=== PATIENT | female | born 1970 | race American Indian/Alaskan Native ===

== ENCOUNTER 2020-09-28 11:05 | Outpatient (CLI) | payer MEDICARE ==
--- NOTE | 2020-09-28 13:00 | XRay Report ---
Right knee-3 views INDICATION: PAIN IN RIGHT KNEE. COMPARISON: None. IMPRESSION: No acute osseous or soft tissue abnormality. Mild tricompartmental degenerative arthr osis. Signer Name: Louis Barragan MD Signed: 09/28/2020 12:55 PM Workstation Name: [id number]
== END 2020-09-28 11:06 | disposition home or self-care (01) ==
LOC: XRAY 11:05
PROVIDERS: ATTEND Anesthesiology Pain Medicine
DX: M17.11 Unilateral primary osteoarthritis, right knee (principal)

== ENCOUNTER 2021-04-25 08:58 | Day surgery (SDC) | payer MEDICARE ==
--- NOTE | 2021-04-20 13:53 | Anesthesia Consultation ---
Anesthesia Consult and Med Hx Date of service: 04/25/21 - Airway Anesthetic Teeth Evaluation: Chipped ROM Head & Neck: Adequate Mental/Hyoid Distance: Adequate Mallampati Class: Class III Intubation Access Assessment: Probably Good - Pre-Operative Health Status ASA Pre-Surgery Classification: ASA3 Proposed Anesthetic Plan: General Nerve Block: TAP - Pulmonary Hx Respiratory Symptoms: No (+2FS) Hx Sleep Apnea: Yes (Does not use CPAP) - Cardiovascular System Hx Hypertension: Yes - Central Nervous System Hx Back Pain: Yes (Lower back) Hx Psychiatric Problems: No - Gastrointestinal Hx Gastroesophageal Reflux Disease: No - Endocrine Hx Non-Insulin Dependent Diabetes: Yes - Hematic Hx Sickle Cell Disease: No - Other Systems Hx Alcohol Use: Yes (Occas) Hx Cancer: No Hx Obesity: Yes
[2021-04-20 13:55] LABS: Basophils % (Auto) 0.6 % (0.0-1.8); Eosinophils # (Auto) 0.1 K/mm3 (0.0-0.4); Eosinophils % (Auto) 1.5 % (0.0-4.3); Hematocrit 42.1 % (30.3-42.9); Hemoglobin 14.3 gm/dl (10.1-14.3); Lymphocytes # (Auto) 2.5 K/mm3 (1.2-5.4); Lymphocytes % (Auto) 37.2 % (13.4-35.0); Mean Corpuscular HGB Conc 34 % (30-34); Mean Corpuscular Volume 90 fl (79-97); Monocytes # (Auto) 0.4 K/mm3 (0.0-0.8); Monocytes % (Auto) 5.5 % (0.0-7.3); Platelet Count 305 K/mm3 (140-440); Red Blood Count 4.68 M/mm3 (3.65-5.03); Red Cell Distribution Width 13.6 % (13.2-15.2)
[2021-04-20 14:07] LABS: BUN/Creatinine Ratio 9; Blood Urea Nitrogen 7 mg/dL (7-17); Calcium 9.3 mg/dL (8.4-10.2); Hemolysis Index 9
--- NOTE | 2021-04-25 08:24 | Short Stay Summary ---
Short Stay Documentation Date of service: 04/25/21 Narrative H&P: 51y/o with symptomatic uterine fibroids. The patient reports having pain and heavy menses. Ultrasound demonstrated findings of an enlarged fibroid uterus of 10cm with a dominate leiomyoma measuring 6cm. She has elected for definitive surgical management - History Principal diagnosis: symptomatic uterine fibroids Past Medical History: hypertension, hyperlipidemia Past Surgical History: Other (elbow and knee surgery) Social history: single - Allergies and Medications Current Medications: Allergies latex Allergy (Verified 04/18/21 14:46) [place]red[place] and peels skin pineapple Allergy (Verified 04/18/21 14:46) Anaphylaxis Home Medications Medication Instructions Recorded Confirmed Last Taken Type Aspirin 325 mg PO QDAY 04/18/21 04/18/21 Unknown History Cyclobenzaprine [Flexeril] 10 mg PO BID 04/18/21 04/18/21 Unknown History HYDROcodone/APAP 7.5-325 [[place] 1 each PO Q6HR PRN 04/18/21 04/18/21 Unknown History 7.5/325] Meclizine [Antivert] 25 mg PO BID 04/18/21 04/18/21 Unknown History Metoprolol [Lopressor] 25 mg PO BID 04/18/21 04/18/21 Unknown History lisinopriL [Lisinopril] 20 mg PO DAILY 04/18/21 04/18/21 Unknown History metFORMIN [Glucophage] 500 mg PO BID 04/18/21 04/18/21 Unknown History Active Medications Acetaminophen (Acetaminophen 500 Mg Tab) 1,000 mg PO ONCE LYNN Stop: 04/25/21 23:00 Celecoxib (Celecoxib 200 Mg Cap) 400 mg PO PREOP NR Stop: 04/25/21 23:00 Fentanyl (Fentanyl 100 Mcg/2 Ml Inj) 100 mcg IV ONCE LYNN Stop: 04/25/21 23:00 Lactated Ringer's (Lactated Ringers) 1,000 mls @ 125 mls/hr IV DIRECT LYNN Magnesium Oxide (Magnesium Oxide 400 Mg Tab) 400 mg PO ONCE LYNN Stop: 04/25/21 23:01 Midazolam HCl (Midazolam 2 Mg/2 Ml Inj) 2 mg IV PREOP NR Stop: 04/25/21 23:59 - Physical exam General appearance: no acute distress Integumentary: no rash HEENT: Atraumatic Lungs: Clear to auscultation Breasts: deferred Heart: Regular rate Gastrointestinal: normal Female Genitourinary: deferred Rectal Exam: deferred - Brief post op/procedure progress note Date of procedure: 04/25/21 Pre-op diagnosis: Symptomatic uterine fibroids Post-op diagnosis: same Procedure: Robotic hysterectomy and bilateral salpingo-oophorectomy Anesthesia: MONI Surgeon: ANA MAYO Estimated blood loss: other (200 mL) Pathology: list (Uterus, cervix, bilateral tubes and ovaries) Specimen disposition: to lab Condition: stable - Hospital course Hospital course: The patient was admitted the day of surgery underwent a robotic hysterectomy b ilateral salpingo-oophorectomy. Please see operative note for details of surgery. Her postoperative course was uneventful. - Disposition Condition at discharge: Good Disposition: DC-01 TO HOME OR SELFCARE Short Stay Discharge Plan Activity: other (Pelvic rest for 6 weeks) Diet: regular Additional Instructions: Schedule follow-up with Dr. Mayo in 4 weeks No tub baths for 4 weeks Patient may shower Follow up with: EMILY OLIVA DO [Primary Care Provider] - 7 Days
[~2021-04-25 08:58] MED LIST: ACETAMINOPHEN 500 MG TAB PO SCH; CELECOXIB 200 MG CAP PO NR; LACTATED RINGERS 1,000 ML IV SCH; MAGNESIUM OXIDE 400 MG TAB PO SCH; MIDAZOLAM 2 MG/2 ML INJ IV NR; fentaNYL 100 MCG/2 ML INJ IV SCH
[2021-04-25] MEDS ORDERED: ceFAZolin/Water 2 GM/20 ML 2 GM/20 ML SYRINGE IV NR (09:00)
[2021-04-25] MEDS ORDERED: METOPROLOL TARTRATE 50 MG TAB PO SCH (10:12)
--- NOTE | 2021-04-25 10:12 | Anesthesia Day of Surgery ---
Anesthesia Day of Surgery - Day of Surgery Patient Examined: Yes Patient H&P Reviewed: Yes Patient is NPO: Yes Beta Blockers: Yes (home dose metoprolol given in preop)
[2021-04-25] MEDS ORDERED: dexAMETHasone 4 MG/ML VIAL ONE (10:15)
[2021-04-25] MEDS ORDERED: BUPIVACAINE-EPINEPHRINE/PF 0.25%-1:200,000 (30 ML) VIAL INFILTRATI ONE (10:15)
[2021-04-25] MEDS ORDERED: ONDANSETRON 4 MG/2 ML INJ IV PRN (10:30)
[2021-04-25] MEDS ORDERED: METOPROLOL TARTRATE 25 MG TAB PO SCH (10:30)
[2021-04-25] MEDS ORDERED: fentaNYL 100 MCG/2 ML INJ ONE ×2 (14:08→15:40)
[2021-04-25] MEDS ORDERED: propofoL 200 MG/20 ML VIAL IV ONE (14:08)
[2021-04-25] MEDS ORDERED: NEOMY 40 MG/POLYMYXIN B 200,000 UNITS/ML (GU) AMPULE IR ONE ×2 (15:07→15:47)
[2021-04-25] MEDS ORDERED: SODIUM CHLORIDE 0.9% IRR 1,500 ML BOTTLE IR ONE (15:48)
[2021-04-25] MEDS ORDERED: SODIUM CHLORIDE 0.9% IRRIG SOLN 2000 ML IR ONE (15:48)
[2021-04-25] MEDS ORDERED: SUGAMMADEX SODIUM 200 MG/2 ML VIAL IV ONE ×2 (16:27→16:34)
--- NOTE | 2021-04-25 16:27 | Operative Report ---
Operative Report Operative Report: Date of surgery: April 25, 2021 Preoperative diagnoses: Symptomatic uterine fibroids Postoperative diagnoses: Same as above Procedure: Robotic hysterectomy and bilateral salpingo-oophorectomy Surgeon: Shasha Pak M.D. Infusion Pharmacist: Roger Funk Anesthesia: Gen. endotracheal anesthesia Estimated blood loss: 200 mL Pathology: Uterus, cervix, bilateral tubes and ovaries Indication: 51-year-old with symptomatic uterine fibroids. The patient elected undergo definitive surgical management. Procedure: The patient was taken to the operating room and given general endotracheal anesthesia without complication. She is prepped and draped in a normal sterile fashion. A bivalve speculum was placed in the patient's vagina and a single- tooth tenaculum placed on the anterior lip of the cervix. The uterus was sounded with the uterine sound. A stay suture was placed at 12 o'clock on the ectocervix. A [employer] uterine manipulator was placed in the bivalve speculum was then removed. Attention was then turned to the patient's abdomen where a 12 millimeter supra umbilical skin incision was then made. A Veress needle was placed and peritoneal entry was verified water-filled syringe. Insufflation of the peritoneal cavity was performed with CO2 gas. The 12 mm trocar was then placed under direct visualization. An additional 8 mm trocar was placed on the patient's left and right lateral side just opposite of the supraumbilical trocar. An additional 5 mm right lateral trocar was then placed as the accessory port. The Michael Castorena device was used to close the fascia of the 12 mm incision. The patient was then placed in steep Trendelenburg. The da Darleen robot was then engaged. General survey of the abdomen and pelvis revealed enlarged fibroid uterus with bilateral tubes and ovaries that were normal in appearance. A fenestrated forcep was placed in arm 2 and a vessel sealer was placed in arm 1. The surgeon then transferred to the surgical console. The infundibulopelvic ligament was then isolated on the right. The vessel sealer was used to coagulate the ligament which was then transected. The tube and ovary were transected from the supply. The round ligament was then coagulated and transected also. The vesicouterine peritoneum was then entered from the patient's right side. The uterine vessels were then coagulated with the vessel sealer. The vessels were then transected . Attention was then turned to the patient's left side where the infundibulopelvic ligament and mesosalpinx were again isolated coagulated and transected. The vesical peritoneum was then entered from the left and joined in the midline. Peritoneum was reflected off of the lower uterine segment. Uterine vessels were then coagulated and then transected. The blood supply to the uterus was adequately contained, a posterior colpotomy was made. The V care ring was visualized. Posterior colpotomy was created with the monopolar scissors. The incision was continued circumferentially until anterior colpotomy was made. The cervix and uterus were amputated from the vaginal cuff. The uterus was then removed along with the tubes and ovaries bilaterally through the vagina and a warm laparotomy sponge was placed and maintain the pneumoperitoneum. The vaginal cuff was then closed in a running fashion with V lock suture. Irrigation of the pelvis was performed. Hemoblast was applied to the incision. The skin was then reapproximated with 4-0 Monocryl. The tissue was sent to pathology which included the cervix, uterus, tubes and ovaries. The patient was then successfully extubated. She was then taken to the recovery room in stable condition. All sponge laps and needle counts were correct x2.
[2021-04-25] MEDS: HYDROmorphone 1 MG/1 ML INJ IV PRN ×4 (17:15→17:45)
[2021-04-25] MEDS ORDERED: KETOROLAC 30 MG/1 ML INJ ONE (18:02)
[2021-04-25] MEDS ORDERED: INSULIN REGULAR, HUMAN 100 UNITS/1 ML SUB-Q ONE ×2 (18:20→18:40)
[2021-04-25] MEDS ORDERED: KETOROLAC 30 MG/1 ML INJ IV ONE (19:02)
[2021-04-25] MEDS ORDERED: MORPHINE 4 MG/1 ML INJ IV ONE (19:29)
[2021-04-25] MEDS ORDERED: SODIUM CHLORIDE 0.9% 1000 ML 1,000 ML ONE (19:31)
--- NOTE | 2021-04-25 19:40 | Post Anesthesia Evaluation ---
- Post Anesthesia Evaluation Patient Participated: Yes Airway Patent: Yes Stable Respiratory Function: Yes Nausea/Vomiting: No Temp > 96.8F: Yes Pain Manageable: Yes Adequeate Hydration: Yes Anesthesia Complications: No Other Comments: Patient to be discahrge home once she has voided.
[2021-04-25 21:22] VITALS: BP 136/84
== END 2021-04-25 21:35 | disposition home or self-care (01) ==
LOC: OR 08:58
PROVIDERS: ATTEND Obstetrics & Gynecology
DX: D25.9 Leiomyoma of uterus, unspecified (principal); Z20.822 Contact with and (suspected) exposure to COVID-19; N80.0 Endometriosis of uterus; N88.8 Other specified noninflammatory disorders of cervix uteri; N83.12 Corpus luteum cyst of left ovary; N83.11 Corpus luteum cyst of right ovary; N83.8 Other noninflammatory disorders of ovary, fallopian tube and broad ligament; Z91.041 Radiographic dye allergy status; Z88.8 Allergy status to other drugs, medicaments and biological substances; Z79.899 Other long term (current) drug therapy; Z79.82 Long term (current) use of aspirin; Z79.84 Long term (current) use of oral hypoglycemic drugs; G47.30 Sleep apnea, unspecified; E66.9 Obesity, unspecified; M19.90 Unspecified osteoarthritis, unspecified site; E11.9 Type 2 diabetes mellitus without complications; Z72.89 Other problems related to lifestyle; Z98.890 Other specified postprocedural states
CPT/HCPCS: 36415; 58554; 64488; 80048; 82962; 84703; 85025; 86850; 86900; 86901; 88307; A4217; J0690; J1100; J1170; J1885; J2250; J2270; J2704; J3010; J7030; J7120; U0003; 64450; J1815